=== PATIENT | male | born 1940 | race Caucasian/White ===

== ENCOUNTER 2017-07-13 12:44 | Inpatient (IN) | payer MEDICARE, OTHER ==
[~2017-07-13] VITALS: Ht 180.3 cm; Wt 114.4 kg
[~2017-07-13 12:44] MED LIST: AMLO5TAB2 PO; ATEN50TA PO; ETOD400T2 PO; FENO145T2 PO; FENO145T32 PO; LIPITOR80 MG PO; MELO15TA23 PO; PANT40TA5 PO; PRED1TAB PO; RIVA10TA PO; VARD20TA2 PO
[2017-07-13 13:37] VITALS: BP 127/83
[2017-07-13] MEDS ORDERED: HEPARIN PF for SUB-Q USE 5,000 UNIT/0.5 ML VIAL. SQ SCH (14:00)
[2017-07-13 14:06] LABS: BASO # 0.1 x10^3/uL (0.0-0.2); BASO % 1 % (0-3); EOS # 0.1 x10^3/uL (0.0-0.7); EOS % 1 % (0-3); HEMATOCRIT 49.8 % (39.0-53.0); HEMOGLOBIN 16.7 g/dL (13.0-17.5); LYMPH # 0.7 x10^3/uL (1.0-4.8); LYMPH % 6 % (24-48); MEAN CORPUSCULAR HEMOGLOBIN 31 pg (25-35); MEAN CORPUSCULAR HGB CONC 34 g/dL (31-37); MEAN CORPUSCULAR VOLUME 93 fL (79-100); MONO # 1.1 x10^3/uL (0.0-1.1); MONO % 10 % (0-9); NEUT % 84 % (31-73); PLATELET COUNT 167 x10^3/uL (140-400); RED BLOOD COUNT 5.38 x10^6/uL (4.30-5.70); RED CELL DISTRIBUTION WIDTH 15.4 % (11.5-14.5); WHITE BLOOD COUNT 11.9 x10^3/uL (4.0-11.0)
[2017-07-13] MEDS ORDERED: POTA20TA4 PO (14:07)
[2017-07-13] MEDS ORDERED: FENO134C PO (14:07)
[2017-07-13] MEDS ORDERED: ALBU18HF IH (14:07)
[2017-07-13] MEDS ORDERED: RIVA20TA2 PO (14:07)
[2017-07-13] MEDS ORDERED: PRED1TAB PO (14:07)
[2017-07-13] MEDS ORDERED: LIPITOR80 MG PO (14:07)
[2017-07-13] MEDS ORDERED: ALBU0.63 NEB (14:07)
[2017-07-13] MEDS ORDERED: DIPH25CA58 PO (14:07)
[2017-07-13] MEDS ORDERED: FURO-68 PO (14:07)
[2017-07-13 14:28] LABS: ALBUMIN 3.1 g/dL (3.4-5.0); ALBUMIN/GLOBULIN RATIO 0.8 (1.0-1.7); CALCIUM 9.2 mg/dL (8.5-10.1); CREATININE 1.9 mg/dL (0.7-1.3); GFR 34.4; POTASSIUM 3.9 mmol/L (3.5-5.1); TOTAL BILIRUBIN 0.9 mg/dL (0.2-1.0); TOTAL PROTEIN 7.2 g/dL (6.4-8.2)
[2017-07-13 14:32] LABS: % BANDS 5 % (0-9); % EOS 1 % (0-5); % LYMPHS 6 % (24-48); % MONOS 12 % (0-10); % SEGS 76 % (35-66); PLT ESTIMATE ADEQUATE (ADEQUATE)
[2017-07-13 14:33] LABS: OVALOCYTES OCC; TOXIC GRANULATION SLIGHT
--- NOTE | 2017-07-13 15:03 | RAD ---
Single view of the Chest 07/13/2017 3:14 PM Indication: Shortness of breath Comparison: Chest radiograph September 29, 2014 Findings: No pneumothorax or pleural effusion is seen. Lordotic projection noted. The heart is enlarged. Mild vascular congestion and interstitial thickening is noted. No acute osseous changes are identified. Impression: Cardiomegaly. Mild central vascular congestion and interstitial thickening. Findings may represent mild changes of congestive failure.
--- NOTE | 2017-07-13 15:18 | PDOC2 ---
CONSULT Date of Admission DATE: 07/13/17 TIME: 15:18 Reason for Consult: Abnormal troponin level Referring Physician: Dr. Nina Chief Complaint Shortness of breath Source: Chart review, Patient History of Present Illness 77-year-old male with history of COPD presented with progressive shortness of breath starting 2-3 days ago. He denied any chest pain, orthopnea, palpitations or syncope. He denied any previous cardiac history. Past Medical History COPD Diabetes mellitus type 2 Chronic kidney disease Hyperlipidemia DVT/PE Chronic diastolic heart failure Past Surgical History Appendectomy Right third toe amputation Right knee surgery Family History Negative for premature coronary artery disease Social History Patient has 60 pack years of smoking history and continues to smoke. He admitted to occasional alcohol intake but denied any drug abuse. Current Medications Current Medications Albuterol/ Ipratropium (Duoneb) 3 ml RTQID NEB ; Start 07/13/17 at 16:00 Heparin Sodium (Porcine) 5,000 unit Q8HRS SQ ; Start 07/13/17 at 14:00 Albuterol/ Ipratropium (Duoneb) 3 ml RTQID NEB ; Start 07/13/17 at 16:00; Status UNV Active Scripts Active Reported Fenofibrate (Fenofibrate,Micronized) 134 Mg Capsule 1 Cap PO DAILY LAST DOSE GIVEN: DATE: TIME: NEXT DOSE DUE: DATE: TIME: Prednisone 1 Mg Tablet 1 Tab PO DAILY LAST DOSE GIVEN: DATE: TIME: NEXT DOSE DUE: DATE: TIME: Benadryl (Diphenhydramine Hcl) 25 Mg Capsule 1 Cap PO QHS LAST DOSE GIVEN: DATE: TIME: NEXT DOSE DUE: DATE: TIME: Xarelto (Rivaroxaban) 20 Mg Tablet 20 Mg PO HS LAST DOSE GIVEN: DATE: TIME: NEXT DOSE DUE: DATE: TIME: Lasix (Furosemide) 40 Mg Tablet 1 Tab PO DAILY LAST DOSE GIVEN: DATE: TIME: NEXT DOSE DUE: DATE: TIME: Klor-Con M20 (Potassium Chloride) 20 Meq Tab.er.prt 1 Tab PO HS LAST DOSE GIVEN: DATE: TIME: NEXT DOSE DUE: DATE: TIME: Ventolin Hfa Inhaler (Albuterol Sulfate) 18 Gm Hfa.aer.ad 1 Puff IH PRN Q4HRS PRN LAST DOSE GIVEN: DATE: TIME: NEXT DOSE DUE: DATE: TIME: Albuterol Sulfate Neb Soln (Albuterol Sulfate) 0.63 Mg/3 Ml Vial.neb 1 Vial NEB QID LAST DOSE GIVEN: DATE: TIME: NEXT DOSE DUE: DATE: TIME: Lipitor (Atorvastatin Calcium) 80 Mg Tablet 80 Mg PO QHS LAST DOSE GIVEN: DATE: TIME: NEXT DOSE DUE: DATE: TIME: Allergies: Coded Allergies: No Known Drug Allergies (Unverified , 12/01/13) PSYCHOLOGICAL ROS: No: Hallucinations Eyes: No: Loss of vision HEENT: No: Epistaxis Respiratory: YES: Cough, Shortness of breath Cardiovascular: No: Chest Pain, Palpitations Gastrointestinal: No: Vomiting Neurological: No: Seizures Skin: No: Rash General: Alert, Oriented X3 HEENT: Atraumatic, PERRLA Lungs: Other (bilateral scattered rhonchi) Heart: Regular rate Abdomen: Soft Extremities: Other (1-2+ pitting edema with chronic changes) Psych/Mental Status: Mood NL VITALS Vital Signs Date Time Temp Pulse Resp B/P (MAP) Pulse Ox O2 Delivery O2 Flow Rate FiO2 07/13/17 13:37 97.9 102 20 127/83 (98) 90 Nasal Cannula 4.0 Labs Laboratory Tests Test 07/13/17 13:51 07/13/17 13:57 D-Dimer (Sophia) 0.23 mg/L (0.00-0.50) Sodium Level 139 mmol/L (136-145) Potassium Level 3.9 mmol/L (3.5-5.1) Chloride Level 100 mmol/L (98-107) Carbon Dioxide Level 34 mmol/L (21-32) Anion Gap 5 (6-14) Blood Urea Nitrogen 21 mg/dL (8-26) Creatinine 1.9 mg/dL (0.7-1.3) Estimated GFR (Cockcroft-Gault) 34.4 BUN/Creatinine Ratio 11 (6-20) Glucose Level 106 mg/dL (70-99) Calcium Level 9.2 mg/dL (8.5-10.1) Total Bilirubin 0.9 mg/dL (0.2-1.0) Aspartate Amino Transf (AST/SGOT) 18 U/L (15-37) Alanine Aminotransferase (ALT/SGPT) 15 U/L (16-63) Alkaline Phosphatase 61 U/L (46-116) Creatine Kinase 76 U/L (39-308) Troponin I Quantitative 0.087 ng/mL (0-0.055) LF-Jbu-G-Type Natriuretic Peptide 4961 pg/mL (0-449) Total Protein 7.2 g/dL (6.4-8.2) Albumin 3.1 g/dL (3.4-5.0) Albumin/Globulin Ratio 0.8 (1.0-1.7) White Blood Count 11.9 x10^3/uL (4.0-11.0) Red Blood Count 5.38 x10^6/uL (4.30-5.70) Hemoglobin 16.7 g/dL (13.0-17.5) Hematocrit 49.8 % (39.0-53.0) Mean Corpuscular Volume 93 fL (79-100) Mean Corpuscular Hemoglobin 31 pg (25-35) Mean Corpuscular Hemoglobin Concent 34 g/dL (31-37) Red Cell Distribution Width 15.4 % (11.5-14.5) Platelet Count 167 x10^3/uL (140-400) Neutrophils (%) (Auto) 84 % (31-73) Lymphocytes (%) (Auto) 6 % (24-48) Monocytes (%) (Auto) 10 % (0-9) Eosinophils (%) (Auto) 1 % (0-3) Basophils (%) (Auto) 1 % (0-3) Neutrophils # (Auto) 10.0 x10^3uL (1.8-7.7) Lymphocytes # (Auto) 0.7 x10^3/uL (1.0-4.8) Monocytes # (Auto) 1.1 x10^3/uL (0.0-1.1) Eosinophils # (Auto) 0.1 x10^3/uL (0.0-0.7) Basophils # (Auto) 0.1 x10^3/uL (0.0-0.2) Segmented Neutrophils % 76 % (35-66) Band Neutrophils % 5 % (0-9) Lymphocytes % 6 % (24-48) Monocytes % 12 % (0-10) Eosinophils % 1 % (0-5) Toxic Granulation Slight Platelet Estimate Adequate (ADEQUATE) Ovalocytes Occ Lactic Acid Level 1.1 mmol/L (0.4-2.0) Assessment/Plan 1. Acute COPD exacerbation: Continue current treatment per Dr. Nina 2. Slightly elevated troponin level without any acute changes on EKG. Patient denied any chest pain. Check 2-D echo to assess LV systolic function and rule out wall motion abnormalities. We will consider further ischemic evaluation in the form of cardiac cath vs stress test based on troponin trend and echo findings. 3. Hyperlipidemia: continue statins and tricor 4. Mild acute on chronic diastolic heart failure: Continue Lasix 5. DVT/PE: On xarelto Thank you for your consultation Problems: SHAHIDA HERNANDEZ MD Jul 13, 2017 15:18
[2017-07-13] MEDS: IPRATRPIUM/ALBUTEROL 0.5/2.5MG 3 ML NEBU. NEB SCH ×2 (15:54→20:33)
[2017-07-13] MEDS ORDERED: IPRATRPIUM/ALBUTEROL 0.5/2.5MG 3 ML NEBU. NEB SCH (16:00)
[2017-07-13] MEDS ORDERED: NON FORMULARY ITEM (Albuterol Sulfate (Albuterol Sulfate Neb Soln) 1 VIAL) NEB PRN (17:00)
[2017-07-13] MEDS ORDERED: NON FORMULARY ITEM (Albuterol Sulfate (Albuterol Sulfate Neb Soln) 1 VIAL) NEB SCH (17:00)
--- NOTE | 2017-07-13 17:07 | EKG ---
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[id number] Requested By: SHAWN RICKETTS Order Number: [id number] Reading MD: Measurements Intervals [place] Rate: 102 P: 49 NH: 156 QRS: -95 QRSD: 90 T: 48 QT: 338 QTc: 445 Interpretive Statements SINUS TACHYCARDIA ABNORMAL RIGHT SUPERIOR AXIS DEVIATION LOW LIMB LEAD VOLTAGE QRS(T) CONTOUR ABNORMALITY CONSIDER ANTEROSEPTAL MYOCARDIAL DAMAGE CONSISTENT WITH INFERIOR INFARCT PROBABLY OLD ABNORMAL ECG RI6.01 Compared to ECG 12/01/2013 00:43:13 Right superior axis now present Myocardial infarct finding now present Sinus rhythm no longer present Atrial abnormality no longer present Left-axis deviation no longer present Left anterior fascicular block no longer present
[2017-07-13] MEDS ORDERED: ALBUTEROL SULFATE 2.5 MG/3 ML NEBU. NEB PRN (17:15)
[2017-07-13 19:00] VITALS: BP 121/76
[2017-07-13] MEDS ORDERED: RIVAROXABAN 10 MG TABLET. PO SCH (21:00)
[2017-07-13] MEDS ORDERED: diphenhydrAMINE HCL 25 MG CAPSULE PO SCH (21:00)
[2017-07-13] MEDS ORDERED: POTASSIUM CHLORIDE 20 MEQ TABLET.ER. PO SCH (21:00)
[2017-07-13] MEDS ORDERED: ATORVASTATIN CALCIUM 20 MG TABLET PO SCH (21:00)
[2017-07-13] MEDS: methylPREDNISolone SOD SUCC PF 125 MG/2 ML VIAL. IV SCH (21:37)
[2017-07-13 23:10] VITALS: BP 151/80
--- NOTE | 2017-07-14 00:21 | HP ---
ADMIT DATE: 07/13/2017 HISTORY AND PHYSICAL HISTORY OF PRESENT ILLNESS: A 77-year-old gentleman came in with increased shortness of breath, exacerbation of COPD. The patient otherwise has a long history of chronic obstructive pulmonary disease, is on chronic oxygen noted over here in the last week or so. The patient has noted increased shortness of breath and difficulty in breathing. The patient otherwise was admitted for acute exacerbation of COPD and possible congestive heart failure, Dr. Berg will review the patient on ____. PAST MEDICAL AND SURGICAL HISTORY: The patient's history includes chronic hearing loss, hypercholesterolemia, chronic COPD. He has had appendectomy, limited range of left shoulder, on chronic oxygen, amputation of right third toe, arthritis of the knees, orthopedic surgery on the right knee x 2. SOCIAL HISTORY: The patient continues to smoke. He has been encouraged to stop smoking. There is about 50 to 08-hyxa-idol history of smoking. Occasional alcohol use. Denies hard drug use. IMMUNIZATIONS: For flu and pneumococcal, up-to-date. FAMILY HISTORY: Positive for throat cancer in a brother as well as prostate cancer in another brother. Father had lung cancer. Mother had colon cancer and a sister with chronic kidney failure. ALLERGIES: The patient has no known drug allergies. MEDICATIONS: Include albuterol, rescue inhaler as well as albuterol for his nebulizer; Lipitor 80, Benadryl 25 mg a day, ____. REVIEW OF SYSTEMS: GENERAL: The patient notes increased shortness of breath, no chest pain. Denies headaches, visual changes, blurred vision, double vision. Denies any ____ hematemesis and neurologically intact. PHYSICAL EXAMINATION: GENERAL: This is a heavyset white male, on chronic oxygen, very short of breath. VITAL SIGNS: Blood pressure 127/83, respiratory rate 20, pulse 102, and temperature 98. He is on 4 liters at 90% and drops down to 88% at times. HEENT: The patient's head was atraumatic, normocephalic. Eyes: PERRLA without jaundice. Mouth and throat were normal. NECK: Supple, without JVD or carotid bruits. No thyromegaly. LUNGS: Diminished throughout with poor movement of air. CARDIOVASCULAR: Regular sinus rhythm, S1, S2. Tachycardic. ABDOMEN: Protuberant, soft, nontender. EXTREMITIES: No clubbing, cyanosis or edema. NEUROLOGIC: The patient is alert and oriented x 3. IMPRESSION AND PLAN: Exacerbation of chronic obstructive pulmonary disease ____ congestive heart failure. Dr. Berg will review the congestive heart failure as well as chronic obstructive pulmonary disease. He was given low dose of steroids as well as of aggressive pulmonary toilet. Make further evaluation once some of the other tests have been returned. SHAWN RICKETTS MD DR: MARELY/nts JOB#: [id number] / [id number]
[2017-07-14] MEDS: IPRATRPIUM/ALBUTEROL 0.5/2.5MG 3 ML NEBU. NEB SCH ×2 (05:16→09:50)
[2017-07-14 06:14] VITALS: BP 113/80
[2017-07-14 06:46] LABS: BASO % 0 % (0-3); EOS % 0 % (0-3); HEMOGLOBIN 16.7 g/dL (13.0-17.5); LYMPH # 0.3 x10^3/uL (1.0-4.8); LYMPH % 2 % (24-48); MEAN CORPUSCULAR HEMOGLOBIN 31 pg (25-35); MEAN CORPUSCULAR HGB CONC 33 g/dL (31-37); MEAN CORPUSCULAR VOLUME 93 fL (79-100); MONO # 0.3 x10^3/uL (0.0-1.1); MONO % 3 % (0-9); NEUT # 11.3 x10^3uL (1.8-7.7); NEUT % 95 % (31-73); PLATELET COUNT 181 x10^3/uL (140-400); RED BLOOD COUNT 5.36 x10^6/uL (4.30-5.70); RED CELL DISTRIBUTION WIDTH 15.1 % (11.5-14.5); WHITE BLOOD COUNT 11.9 x10^3/uL (4.0-11.0)
[2017-07-14 06:59] LABS: CALCIUM 9.3 mg/dL (8.5-10.1); CREATININE 1.9 mg/dL (0.7-1.3); GFR 34.4; POTASSIUM 4.9 mmol/L (3.5-5.1)
[2017-07-14] MEDS ORDERED: IPRATRPIUM/ALBUTEROL 0.5/2.5MG 3 ML NEBU. NEB SCH (08:00)
--- NOTE | 2017-07-14 08:43 | CARD ---
APPROVED REPORT EXAM: Two-dimensional and M-mode echocardiogram with Doppler and color Doppler. Other Information Quality : Technically Limited INDICATION Congestive Heart Failure 2D DIMENSIONS RVDd4.8 (2.9-3.5cm)Left Atrium(2D)2.5 (1.6-4.0cm) IVSd1.3 (0.7-1.1cm)Aortic Root(2D)3.3 (2.0-3.7cm) LVDd3.8 (3.9-5.9cm)LVOT Diameter2.1 (1.8-2.4cm) PWd1.2 (0.7-1.1cm)LVDs2.8 (2.5-4.0cm) FS (%) 25.0 %SV30.8 ml LVEF(%)50.2 (>50%) Aortic Valve AoV Peak Thomas.116.4cm/sAoV VTI16.8cm AO Peak GR.5.4mmHgLVOT Peak Thomas.78.3cm/s LVOT VTI 12.26cmAO Mean GR.4mmHg KAMILA (VMAX)2.12lr3EKK (VTI)2.53cm2 Mitral Valve MV E Yzrhasgn59.9cm/sMV DECEL ULYW001gs MV A Bzkkzllq21.8cm/sE/A Ratio0.7 Tricuspid Valve TR P. Aunccyju231cz/sRAP BNKWSYDV5sqSb TR Peak Gr.85vhWjJTTZ79baYj LEFT VENTRICLE The left ventricle is normal size. There is mild concentric left ventricular hypertrophy. Left ventri juan systolic function is normal. The Ejection Fraction is 50-55%. Flattened interventricular septum c onsistent right ventricle volume/pressure overload. Transmitral Doppler flow pattern is Grade I-abnor mal relaxation pattern. RIGHT VENTRICLE The right ventricle is moderate to severely dilated. Systolic function is moderately reduced. ATRIA The left atrium size is normal. The right atrium is moderately dilated. [place] versus aneurysmal inte ratrial septal noted. AORTIC VALVE The aortic valve is mildly calcified. Doppler and Color Flow revealed no significant aortic regurgita tion. There is no significant aortic valvular stenosis. MITRAL VALVE The mitral valve is mildly thickened. There is no evidence of mitral valve prolapse. There is no mitr al valve stenosis. Doppler and Color Flow revealed no mitral valve regurgitation noted. TRICUSPID VALVE The tricuspid valve is normal in structure. Doppler and Color Flow revealed moderate tricuspid regurg itation. There is severe pulmonary hypertension. The PA pressure was estimated at 87 mmHg. There is n o tricuspid valve prolapse or vegetation. There is no tricuspid valve stenosis. PULMONIC VALVE The pulmonary valve is normal in structure and function. Doppler and Color Flow revealed no pulmonic valvular regurgitation. There is no pulmonic valvular stenosis. GREAT VESSELS The aortic root is normal in size. The ascending aorta is normal in size. The IVC is normal in size a nd collapses >50% with inspiration. PERICARDIAL EFFUSION There is no pleural effusion. There is no evidence of significant pericardial effusion. Critical Notification Critical Value: No <Conclusion> Left ventricle systolic function is normal. The Ejection Fraction is 50-55%. Flattened interventricular septum consistent right ventricle volume/pressure overload. Transmitral Doppler flow pattern is Grade I-abnormal relaxation pattern. The right ventricle is moderate to severely dilated. Moderate tricuspid regurgitation. There is severe pulmonary hypertension. The PA pressure was estimated at 87 mmHg. There is no evidence of significant pericardial effusion.
[2017-07-14] MEDS ORDERED: FENOFIBRATE NANOCRYSTALLIZED 145 MG TABLET PO SCH (09:00)
[2017-07-14] MEDS ORDERED: FUROSEMIDE 40 MG TABLET PO SCH (09:00)
[2017-07-14] MEDS: methylPREDNISolone SOD SUCC PF 125 MG/2 ML VIAL. IV SCH (09:21)
[2017-07-14] MEDS ORDERED: IV NORMAL SALINE 1,000ML 1,000 ML IV SCH (09:30)
[2017-07-14 09:44] VITALS: BP 111/76
== END 2017-07-14 10:35 | disposition short-term general hospital (02) | DRG 190 ==
LOC: 1 SOUTH 12:44
PROVIDERS: ADMIT Family Medicine; ATTEND Family Medicine
DX: J44.1 Chronic obstructive pulmonary disease with (acute) exacerbation (principal); I50.33 Acute on chronic diastolic (congestive) heart failure; Z99.81 Dependence on supplemental oxygen; E11.22 Type 2 diabetes mellitus with diabetic chronic kidney disease; F17.210 Nicotine dependence, cigarettes, uncomplicated; H91.90 Unspecified hearing loss, unspecified ear; E78.00 Pure hypercholesterolemia, unspecified; N18.9 Chronic kidney disease, unspecified; E78.5 Hyperlipidemia, unspecified; M17.0 Bilateral primary osteoarthritis of knee; Z79.899 Other long term (current) drug therapy; Z79.51 Long term (current) use of inhaled steroids; Z71.6 Tobacco abuse counseling; Z90.49 Acquired absence of other specified parts of digestive tract; Z89.421 Acquired absence of other right toe(s); Z86.718 Personal history of other venous thrombosis and embolism; Z86.711 Personal history of pulmonary embolism; Z80.0 Family history of malignant neoplasm of digestive organs; Z80.1 Family history of malignant neoplasm of trachea, bronchus and lung; Z80.42 Family history of malignant neoplasm of prostate; Z80.8 Family history of malignant neoplasm of other organs or systems; Z84.1 Family history of disorders of kidney and ureter
CPT/HCPCS: 36415; 71010; 80048; 80053; 82550; 82947; 83605; 83880; 84484; 85007; 85025; 85379; 87070; 87205; 93005; 93306; 94640; 94760; J2930; J7620; Q0163; J7030

== ENCOUNTER 2017-07-22 16:36 | Inpatient (IN) | payer MEDICARE, OTHER ==
[~2017-07-22] VITALS: Ht 180.3 cm; Wt 104.9 kg
[~2017-07-22 16:36] MED LIST changes: +ALBU0.63 NEB; +ALBU18HF IH; +DIPH25CA58 PO; +FENO134C PO; +FURO-68 PO; +POTA20TA4 PO; +RIVA20TA2 PO
[2017-07-22] MEDS ORDERED: MAGN2400 PO (17:08)
[2017-07-22] MEDS ORDERED: NITR0.4T22 SL (17:08)
[2017-07-22] MEDS ORDERED: TAMS0.4C97 PO (17:08)
[2017-07-22] MEDS ORDERED: PRED20TA PO (17:08)
[2017-07-22] MEDS ORDERED: OXYM15MI4 NS (17:08)
[2017-07-22] MEDS ORDERED: BISA10SU2 RC (17:08)
[2017-07-22] MEDS ORDERED: CALC200T3 PO (17:08)
[2017-07-22] MEDS ORDERED: ASPI-612 PO (17:08)
[2017-07-22] MEDS ORDERED: BENZ-8 PO (17:08)
[2017-07-22] MEDS ORDERED: CLOP75TA PO (17:08)
[2017-07-22] MEDS ORDERED: METO25TA2 PO (17:08)
[2017-07-22] MEDS ORDERED: ACET325T9 PO (17:08)
[2017-07-22] MEDS ORDERED: BUDE0.5A11 NEB (17:08)
[2017-07-22 18:22] VITALS: BP 138/95
[2017-07-22] MEDS ORDERED: NITROGLYCERIN SUBLINGUAL 0.4 MG BOTTLE OF 25. SL PRN (19:00)
[2017-07-22] MEDS ORDERED: CALCIUM CARBONATE 500 MG TAB.CHEW PO PRN (19:00)
[2017-07-22] MEDS ORDERED: BENZONATATE 100 MG CAPSULE. PO PRN (19:00)
[2017-07-22] MEDS ORDERED: ALBUTEROL SULFATE 8GM INHALER. IH PRN (19:00)
[2017-07-22] MEDS ORDERED: BISACODYL 10 MG SUPP.RECT RC PRN (19:00)
[2017-07-22] MEDS ORDERED: ACETAMINOPHEN 325 MG TABLET PO PRN (19:00)
[2017-07-22] MEDS ORDERED: ALBUTEROL SULFATE 2.5 MG/3 ML NEBU. NEB PRN (19:15)
[2017-07-22] MEDS ORDERED: MAGNESIUM HYDROXIDE 2,400 MG/30 ML ORAL.SUSP. PO PRN (19:30)
[2017-07-22] MEDS ORDERED: OXYMETAZOLINE 0.05% NASAL SPRAY 15ML BOTTLE. NS PRN (19:30)
[2017-07-22 19:36] VITALS: BP 130/62
[2017-07-22] MEDS: ALBUTEROL SULFATE 2.5 MG/3 ML NEBU. NEB SCH (20:06)
[2017-07-22] MEDS: BUDESONIDE 0.5 MG/2 ML NEBU NEB SCH (20:06)
[2017-07-22] MEDS: TAMSULOSIN 0.4 MG CAP.ER.24H. PO SCH (20:31)
[2017-07-22] MEDS: ATORVASTATIN CALCIUM 20 MG TABLET PO SCH (20:31)
[2017-07-22] MEDS: diphenhydrAMINE HCL 25 MG CAPSULE PO PRN (20:32)
[2017-07-22] MEDS ORDERED: NON FORMULARY ITEM (Albuterol Sulfate (Albuterol Sulfate Neb Soln) 1 VIAL) NEB SCH (21:00)
[2017-07-23 05:44] VITALS: BP 131/85
[2017-07-23] MEDS: ALBUTEROL SULFATE 2.5 MG/3 ML NEBU. NEB SCH ×4 (05:54→21:26)
[2017-07-23 06:48] LABS: BASO % 0 % (0-3); EOS # 0.2 x10^3/uL (0.0-0.7); EOS % 1 % (0-3); HEMATOCRIT 51.4 % (39.0-53.0); HEMOGLOBIN 17.5 g/dL (13.0-17.5); LYMPH # 1.1 x10^3/uL (1.0-4.8); LYMPH % 5 % (24-48); MEAN CORPUSCULAR HEMOGLOBIN 31 pg (25-35); MEAN CORPUSCULAR HGB CONC 34 g/dL (31-37); MEAN CORPUSCULAR VOLUME 91 fL (79-100); MONO # 1.3 x10^3/uL (0.0-1.1); MONO % 6 % (0-9); NEUT # 20.8 x10^3uL (1.8-7.7); NEUT % 88 % (31-73); PLATELET COUNT 232 x10^3/uL (140-400); RED BLOOD COUNT 5.67 x10^6/uL (4.30-5.70); RED CELL DISTRIBUTION WIDTH 14.8 % (11.5-14.5); WHITE BLOOD COUNT 23.6 x10^3/uL (4.0-11.0)
[2017-07-23 06:55] LABS: ALBUMIN 2.8 g/dL (3.4-5.0); ALBUMIN/GLOBULIN RATIO 0.8 (1.0-1.7); CALCIUM 9.1 mg/dL (8.5-10.1); GFR 32.4; POTASSIUM 4.4 mmol/L (3.5-5.1); TOTAL BILIRUBIN 0.7 mg/dL (0.2-1.0); TOTAL PROTEIN 6.3 g/dL (6.4-8.2)
[2017-07-23] MEDS: BUDESONIDE 0.5 MG/2 ML NEBU NEB SCH ×2 (08:00→21:26)
[2017-07-23] MEDS: ASPIRIN ENTERIC COATED 81 MG TABLET.DR. PO SCH (08:41)
[2017-07-23] MEDS: FUROSEMIDE 40 MG TABLET PO SCH (08:41)
[2017-07-23] MEDS: CLOPIDOGREL BISULFATE 75 MG TABLET PO SCH (08:41)
[2017-07-23] MEDS: POTASSIUM CHLORIDE 20 MEQ TABLET.ER. PO SCH (08:41)
[2017-07-23] MEDS: FENOFIBRATE NANOCRYSTALLIZED 145 MG TABLET PO SCH (08:42)
[2017-07-23] MEDS: METOPROLOL SUCC 24HR ER 25 MG TAB.ER.24H. PO SCH (08:42)
[2017-07-23] MEDS ORDERED: predniSONE 20 MG TABLET PO SCH (09:00)
[2017-07-23 09:01] LABS: % BANDS 3 % (0-9); % EOS 1 % (0-5); % LYMPHS 3 % (24-48); % MONOS 6 % (0-10); % SEGS 87 % (35-66)
[2017-07-23 09:02] LABS: PLT ESTIMATE ADEQUATE (ADEQUATE)
[2017-07-23 09:06] LABS: OVALOCYTES OCC
[2017-07-23 09:07] LABS: TOXIC GRANULATION SLIGHT
[2017-07-23 12:54] VITALS: BP 110/64
[2017-07-23] MEDS ORDERED: RIVAROXABAN 10 MG TABLET. PO SCH (17:00)
[2017-07-23 17:24] VITALS: BP 131/82
[2017-07-23] MEDS: TAMSULOSIN 0.4 MG CAP.ER.24H. PO SCH (20:38)
[2017-07-23] MEDS: ATORVASTATIN CALCIUM 20 MG TABLET PO SCH (20:38)
[2017-07-23] MEDS: diphenhydrAMINE HCL 25 MG CAPSULE PO PRN (20:41)
--- NOTE | 2017-07-23 22:33 | HP ---
ADMIT DATE: 07/22/2017 HISTORY OF PRESENT ILLNESS: A 77-year-old male was transferred here to the skilled unit. The patient originally had a non-STEMI, poorly controlled diabetes and exacerbation of COPD. As a result of this, the patient had been sent to [place], where the patient was noted to have a significant blockage in his coronary artery and as a result of this was stented and was doing much better. He has returned here for rehabilitation. PAST SURGICAL HISTORY: Appendectomy, right third toe amputation, right knee surgery, now ____ in the last 2 weeks. PAST MEDICAL HISTORY: Positive for COPD, type 2 diabetes, chronic kidney disease, hyperlipidemia, DVT, PE, chronic diastolic heart failure, and morbid obesity. FAMILY HISTORY: Negative for heart disease. SOCIAL HISTORY: The patient has a [id number] history of smoking and does drink occasionally. Denies hard drug use. ALLERGIES: No known drug allergies. MEDICATIONS: Include Tylenol, albuterol sulfate nebulizer treatments, Ventolin HFA inhaler p.r.n., 81 mg aspirin, Lipitor 80, benzonatate 100, Risperdal 10 mg, budesonide 1 neb b.i.d., calcium carbonate, Plavix 75 mg, diphenhydramine 25 mg q.6 hours p.r.n., furosemide 40 mg a day, magnesium oxide ____ 400 mg daily, metoprolol ____ mg daily, nitroglycerin 0.4 mg sublingual p.r.n., Afrin nasal spray p.r.n., Klor-Con 20 daily, prednisone 20 mg daily, Xarelto 20 mg daily and Flomax 0.4 mg daily. REVIEW OF SYSTEMS: Presently the patient denies chest pain, does have some mild shortness of breath with exertion, but otherwise denies abdominal pain. Denies any melena, hematochezia, or hematemesis. Neurologically intact. PHYSICAL EXAMINATION: GENERAL: Pleasant white male, well developed, well nourished, probably a little bit obese. VITAL SIGNS: Blood pressure 130/80, respiratory rate 22, pulse 84, temperature 97.5. He is on 4 liters of oxygen. HEENT: The patient's head was atraumatic, normocephalic. Eyes: PERRLA without jaundice. The mouth and throat were normal. NECK: Supple, without JVD, carotid bruits. No thyromegaly. LUNGS: Diminished with poor movement of air, but clear than they have been, but decreased throughout. CARDIOVASCULAR: Regular sinus rhythm, S1, S2. ABDOMEN: Protuberant, soft, nontender. EXTREMITIES: No clubbing, cyanosis or edema. NEUROLOGIC: Intact. LABORATORY DATA: White count 23,000, may be from prednisone. Hemoglobin and hematocrit show some polycythemia vera there. The patient otherwise has BUN and creatinine 50 and 2.0 and continued to be monitored there. Otherwise, he will continue with PT, OT, rehab for his non-STEMI as well as the COPD. IMPRESSION: Recent non-ST elevation myocardial infarction, coronary artery disease, morbid obesity. The patient will be continued to be monitored accordingly and make further evaluation on him. PT, OT on the skilled unit and make adjustments accordingly. SHAWN RICKETTS MD DR: MARELY/tyson JOB#: [id number] / [id number]
[2017-07-24] MEDS: ALBUTEROL SULFATE 2.5 MG/3 ML NEBU. NEB SCH ×2 (05:24→10:54)
[2017-07-24 05:59] VITALS: BP 114/73
[2017-07-24 07:41] VITALS: BP 107/70
[2017-07-24] MEDS: CLOPIDOGREL BISULFATE 75 MG TABLET PO SCH (07:42)
[2017-07-24] MEDS: POTASSIUM CHLORIDE 20 MEQ TABLET.ER. PO SCH (07:43)
[2017-07-24] MEDS: ASPIRIN ENTERIC COATED 81 MG TABLET.DR. PO SCH (07:43)
[2017-07-24] MEDS: FUROSEMIDE 40 MG TABLET PO SCH (07:43)
[2017-07-24 07:44] VITALS: BP 114/73
[2017-07-24] MEDS: METOPROLOL SUCC 24HR ER 25 MG TAB.ER.24H. PO SCH (07:44)
[2017-07-24] MEDS: FENOFIBRATE NANOCRYSTALLIZED 145 MG TABLET PO SCH (07:45)
[2017-07-24] MEDS ORDERED: predniSONE 10 MG TABLET PO SCH (09:00)
[2017-07-24] MEDS ORDERED: BENZ-8 PO (10:40)
[2017-07-24] MEDS ORDERED: TAMS0.4C97 PO (10:40)
[2017-07-24] MEDS ORDERED: CLOP75TA PO (10:40)
[2017-07-24] MEDS ORDERED: METO25TA2 PO (10:40)
[2017-07-24] MEDS ORDERED: PRED1TAB PO (10:40)
[2017-07-24] MEDS ORDERED: NITR0.4T22 SL (10:40)
[2017-07-24] MEDS: BUDESONIDE 0.5 MG/2 ML NEBU NEB SCH (10:54)
== END 2017-07-24 12:00 | disposition home health service (06) | DRG 190 ==
LOC: LND 17:32
PROVIDERS: ADMIT Family Medicine; ATTEND Family Medicine
DX: J44.1 Chronic obstructive pulmonary disease with (acute) exacerbation (principal); I21.4 Non-ST elevation (NSTEMI) myocardial infarction; E11.22 Type 2 diabetes mellitus with diabetic chronic kidney disease; I50.32 Chronic diastolic (congestive) heart failure; E11.65 Type 2 diabetes mellitus with hyperglycemia; E66.01 Morbid (severe) obesity due to excess calories; I25.10 Atherosclerotic heart disease of native coronary artery without angina pectoris; E78.5 Hyperlipidemia, unspecified; Z87.891 Personal history of nicotine dependence; Z68.32 Body mass index [BMI] 32.0-32.9, adult; Z89.421 Acquired absence of other right toe(s); Z90.49 Acquired absence of other specified parts of digestive tract; N18.9 Chronic kidney disease, unspecified; Z86.718 Personal history of other venous thrombosis and embolism; Z79.01 Long term (current) use of anticoagulants; Z86.711 Personal history of pulmonary embolism
CPT/HCPCS: 36415; 80053; 85007; 85025; 94640; J7512; J7613; J7626; Q0163; 97110; 97116; 97535

== ENCOUNTER 2017-08-09 15:18 | Emergency (ER) | payer MEDICARE, OTHER ==
[~2017-08-09 15:18] MED LIST changes: +ACET325T9 PO; +ASPI-612 PO; +BENZ-8 PO; +BISA10SU2 RC; +BUDE0.5A11 NEB; +CALC200T3 PO; +CLOP75TA PO; +MAGN2400 PO; +METO25TA2 PO; +NITR0.4T22 SL; +OXYM15MI4 NS; +PRED20TA PO; +TAMS0.4C97 PO
--- NOTE | 2017-08-09 15:48 | PHYS DOC ---
Past History Past Medical History: COPD, Other Past Surgical History: Other Alcohol Use: Heavy Adult General Chief Complaint Chief Complaint: CPR/FULL ARREST HPI HPI Patient is a 77 year old M who presents with cardiac arrest. Noe was on the phone with his son when he had an episode caused him to fall. When his son arrived home he found his father on the floor his father stated that he needed to go to the emergency room and then became unresponsive. His son states that his eyes were going in different directions and he was having extreme difficulty breathing. His son began CPR and called 911. Upon EMS arrival his initial rhythm was asystole. Prior to arrival ACLS was admitted in progress for 56 minutes. He received 9 doses of epinephrine and his rhythm remained in asystole. There was difficulty obtaining an airway and moderate blood was noted. He remained unresponsive He did have a cardiac catheterization approximately 10 days ago Review of Systems Review of Systems Unable to obtain due to current condition Family History Family History Noncontributory Current Medications Current Medications Medications reviewed Allergies Allergies Allergies Coded Allergies Type Severity Reaction Last Updated Verified No Known Drug Allergies 12/01/13 No Physical Exam Physical Exam Constitutional: Nonresponsive with mechanical chest compression device in place and intubated. Moderate blood noted surrounding the mouth as well as moderate blood is been suctioned prior to arrival HENT: No obvious trauma to the head however evaluation was limited Eyes: Pupils were fixed and nonresponsive Cardiovascular: Asystole was noted as well as PA Lungs & Thorax: Breath sounds were heard bilaterally with bagged ventilation, there is marked erythema bilaterally on the superior chest starting just above the nipple line Abdomen: Abdomen was distended Neurologic: Unresponsive Psychologic: Unable to assess Current Patient Data Vital Signs Cardiac arrest EKG EKG [] Radiology/Procedures Radiology/Procedures [] Course & Med Decision Making Course & Med Decision Making Pertinent Labs and Imaging studies reviewed. (See chart for details) After EMS arrived patient never regained responsiveness despite several rounds of ACLS. His condition likely represents [place] versus PE versus stroke. Time of was called at 1523. Dr. Nina was contacted by phone as he was his primary care doctor Irma Disclaimer Irma Disclaimer This electronic medical record was generated, in whole or in part, using a voice recognition dictation system. Departure Departure: Impression: Primary Impression: Cardiopulmonary arrest Disposition: 20 Condition: Referrals: SHAWN NINA MD (PCP) SHAWN LARIOS MD Aug 09, 2017 15:48
== END 2017-08-09 17:30 | disposition expired ==
LOC: ER 15:18
DX: I46.9 Cardiac arrest, cause unspecified (principal); J44.9 Chronic obstructive pulmonary disease, unspecified; F10.20 Alcohol dependence, uncomplicated
CPT/HCPCS: 92950; 99285-25